=== PATIENT | female | born 2000 | race Hispanic/Latino ===

== ENCOUNTER 2023-04-20 03:02 | Day surgery (SDC) | payer OTHER, MEDICAID, SELFPAY ==
[2023-04-13 12:48] VITALS: BMI 29.2
--- NOTE | 2023-04-19 17:52 | PM.IMHP ---
H&P: HPI History of Present Illness Date/Time: 04/19/23 17:52 Chief Complaint: tonsillar stones halitosis recurrent tonsillitis Narrative: planned procedure Review of Systems Review of Systems: All systems reviewed & are unremarkable except as noted in HPI and below PMFSH Family History Family History (Updated 03/05/23 @ 11:30 by Lexii Lara CMA) Father Diabetes mellitus Heart disease Grandparent Diabetes mellitus Mother Depression Social History Social History (Updated 03/05/23 @ 11:28 by Lexii Lara CMA) Smoking status: Never smoker Alcohol intake: never Lack of Transportation: No Lack of Food: Never True Current Housing: I Have Housing Concerned About Future Housing: No Difficulty Paying Gas/Electric Bills: No Difficulty Paying for Meds: No Currently Unemployed: No Education: Associate Degree Difficulty w/ Childcare or Family Care: No Living arrangements: with family Spiritual care concerns: No Meds Home Medications and Allergies Home Medications Medication Instructions Recorded Confirmed Type No Home Medications 03/05/23 04/13/23 History Allergies Allergy/AdvReac Type Severity Reaction Status Date / Time Sulfa (Sulfonamide Allergy Unknown Verified 04/13/23 12:49 Antibiotics) Exam Narrative: chronic appearing tonsil stones press Assessment and Plan Assessment and plan (1) Halitosis: Code(s): R19.6 - Halitosis Status: Acute Assessment and Plan: plan operating room tonsillectomy risks were discussed including bleeding infection damage to surrounding structures pain above the clavicles need for further procedures change in swallow failure to resolve symptoms should be other than the something other than tonsils.? Postop bleeding 3-5% need for time off work need for time off school.? Need for narcotics.? Patient voiced understanding of these risks and agreed. (2) Tonsil stone: Code(s): J35.8 - Other chronic diseases of tonsils and adenoids Status: Acute (3) Recurrent tonsillitis: Code(s): J03.91 - Acute recurrent tonsillitis, unspecified Status: Acute
[2023-04-20] VITALS (9 sets, daily range): BP systolic 109–131; BP diastolic 58–102; PULSE 56–93; RESP 12–20; TEMP 36.1–36.4; O2SAT 95–100
--- NOTE | 2023-04-20 07:20 | WPDHPUPDATE1 ---
History and Physical Update Update Date/Time: 04/20/23 07:20 History and Physical has been reviewed, including an updated exam of the patient. There are NO changes in the patient's condition. Risks, benefits, and alternatives have been discussed and questions answered. Patient agrees to proceed with procedure.
[2023-04-20] MEDS: ACETAMINOPHEN 500 MG TABLET 1000 MG PO (10:23)
[2023-04-20] MEDS: LACTATED RINGERS 1,000 ML 30 ML IV CONT (10:45)
--- NOTE | 2023-04-20 11:38 | P.PNAN_ITS ---
Anes - Initial Pre Proc Eval Procedure: Operation Date: 04/20/23 12:00 Proposed Procedures p Tonsillectomy - Magdaleno Srivastava MD Date/Time: 04/20/23 11:38 Surgeon: Magdaleno Srivastava MD Pre Op Diagnosis: chronic tonsilitis Patient Data Age: 22 Gender: F Height: 1.63 m Weight: 76.4 kg Last Vital Signs Temp 36.4 C 04/20/23 10:24 Pulse 67 04/20/23 10:24 Resp 20 04/20/23 10:24 BP 110/58 L 04/20/23 10:24 Pulse Ox 99 04/20/23 10:24 O2 Del Method Room Air 04/20/23 10:24 Allergies Allergy/AdvReac Type Severity Reaction Status Date / Time Sulfa (Sulfonamide Allergy Intermediate LOW BLOOD Verified 04/20/23 10:20 Antibiotics) CELL COUNT Home Medications Medication Instructions Recorded Confirmed Type No Home Medications 03/05/23 04/20/23 History Patient hx anesthesia problems: none Family hx anesthesia problems: none Results Review: All pre-operative results and documents have been reviewed as part of the pre- operative evaluation. [facility] Past Medical History Medical History Overweight Family History Family History Father Diabetes mellitus Heart disease Grandparent Diabetes mellitus Mother Depression Social History Social History Smoking status: Never smoker Alcohol intake: never Lack of Transportation: No Lack of Food: Never True Current Housing: I Have Housing Concerned About Future Housing: No Difficulty Paying Gas/Electric Bills: No Difficulty Paying for Meds: No Currently Unemployed: No Education: Associate Degree Difficulty w/ Childcare or Family Care: No Living arrangements: with family Spiritual care concerns: No Anes - Eval Final PreProcedure Day of Procedure 04/20/23 11:38 Patient weight: overweight Heart: regular rate and rhythm Lungs: clear to auscultation Airway: Mallampati scale class II Neurological: alert and oriented Last oral intake: >/= 8 hours ASA classification: II Emergent: no Anesthetic plan: proceed Anesthesia type and monitoring: general ETT and standard monitoring Results Review: All pre-operative results and documents have been reviewed as part of the pre- operative evaluation. Informed Consent: The patient's anesthetic plan and its attendant risks and benefits were discussed with the patient/family/POA. Questions were solicited and answers provided to the satisfaction of the patient/family/POA.
[2023-04-20] MEDS: SCOPOLAMINE 1.5 MG PATCH TRANSDERM (11:45)
--- NOTE | 2023-04-20 12:55 | SUR.PREOP ---
1255-PT AWARE SURGEON DELAYS SELF AND OR ROOM BEING PREPARED AT THIS TIME.
--- NOTE | 2023-04-20 14:29 | W.PM.PROC2 ---
Procedure Note - Detailed Date of Procedure 04/20/23 Pre-op Diagnosis chronic tonsilitis, recurrent tonsillitis Post-op Diagnosis Same Procedure Performed tonsillectomy Surgeon Magdaleno Srivastava MD Anesthesia General Indications see above Findings chronic appearing tonsils 2+ Description of Procedure patient identified consent verified preop. Patient brought operating room. Time-out performed. General anesthesia induced endotracheal tube secured. Patient prepped draped position procedure confirmed. Second time-out Performed. McIvor mouth gag inserted reveal tonsils described above they were both removed in the extracapsular plane using Bovie electrocautery setting of 10. Any bleeding was controlled with Bovie suction electrocautery setting of 12. This was a bilateral procedure. Bleeding was only about 2 cc. In between tonsillectomy the McIvor mouth gag was lowered to allow tongue blood flow to return to the tongue. After the 2nd tonsillectomy McIvor mouth gag was lowered for 30 seconds reopened reveal no further bleeding. I performed all dictated portions of procedure. McIvor mouth gag removed. Care the patient given Anesthesiology. No complications. Blood loss 2 cc. Patient taken to PACU. Estimated Blood Loss 2 Drains No Packing No Pathology Yes Complications No immediate complications Condition Stable Disposition PACU [facility] Billing Surgery - Charge Forward: Surgery Billing
[2023-04-20] MEDS: fentaNYL CITRATE INJ (*CRX) 100 MCG/2 ML VIAL 25 MCG IV PUSH ×2 (14:47→15:03)
[2023-04-20] MEDS: oxyCODONE HCL (*CRX) 5 MG TAB IR PO (15:28)
== END 2023-04-20 16:20 | disposition home or self-care (01) ==
PROVIDERS: PCP Registered Nurse; Visit Provider Otolaryngology
PROC: (CPT 42826; principal; 2023-04-20 12:00)
DX: J03.91 Acute recurrent tonsillitis, unspecified (principal); R19.6 Halitosis; J35.8 Other chronic diseases of tonsils and adenoids
CPT/HCPCS: 42826; 88302; A9270; J0330; J1100; J2250; J2405; J2704; J3010; J7120